=== PATIENT | male | born 1960 | race Caucasian/White ===

== ENCOUNTER 2024-08-05 09:12 | Outpatient (AMB) | payer OTHER, SELFPAY ==
--- OUTSIDE RECORDS SUMMARY | 2024-08-05 09:14 | XMS_ITS | Continuity of Care Document ---
Author Organization Formerly [facility] Address [address] [address] Phone Care Team Providers Care Top Lifter Name Role Phone Simon Medina DO Unavailable Unavailable Advance Directives Directive Yes / No Effective Date File Name No Information Encounters Encounter Description Practice Location Reason(s) For Visit Diagnoses Date Provider [facility]ly [facility], [address], [id number], [place] tel:[phone] [address] [place] [address] No Information 2014 Adam Montes. [address] [place] [address], [id number], [place]. tel:[phone] Family History Family Member Type Diagnosis Age At Onset No Information Payers Payer name Insurance type Covered democrat ID Authoriza tion(s) No Information Social History Type Description Quantity Date Captured Comments Sex Male Smoking Status No Information Chief Complaint And Reason For Visit No Information History Of Present Illness Encounter Date Complaint History Of Prese nt Illness No Information Instructions Date Instruction Additional Infor mation No Information Assessments Type Assessment Date No Information
--- NOTE | 2024-08-05 09:16 | AM.OFFWIN_ITS ---
Intake Vital Signs 08/05/24 09:17 Height 5 ft 4 in Weight 204 lb BMI 35.0 BP 142/92 H Blood Pressure Location Lt brachial Position Sitting Pulse 81 Pulse Source Pulse Oximeter Temp 97.8 F Temp Source Oral Pulse Oximetry (%) 99 Oxygen Delivery Method Room Air Intake Visit Reasons: TOBACCO DIPPER- Cough Intake Note: Passed out twice when coughing. Very congested. Allergies procaine Adverse Reaction (Severe, Verified 08/05/24 09:19) Chest Pain HPI HPI Comments History of Present Illness Details This is a 64-year-old male who presented to the walk-in clinic today complaining of viral URI symptoms with cough x 2 weeks. Patient reports a productive cough of clear sputum, nasal congestion and nasal discharge with clear sputum, sore throat, and bilateral otalgia x2 weeks. He denies any fevers or chills. He denies any chest pain or shortness for breath. He denies any hemoptysis. He denies any bilateral lower extremity edema. Review of Systems Const All systems reviewed & are unremarkable except as noted in HPI and below Reports no additional complaints Eyes Reports no additional complaints ENT Reports no additional complaints Card Reports no additional complaints Resp Reports no additional complaints GI Reports no additional complaints Reports no additional complaints Musc Reports no additional complaints Skin/Breast Reports system reviewed and no additional complaints, except as documented Neuro Reports no additional complaints Psych Reports no additional complaints Endo Reports no additional complaints Jose Armando/Lymph Reports no additional complaints Aller/Immun Reports no additional complaints Physical Exam Vital Signs: Last Vital Signs Temp 97.8 F 08/05/24 09:17 Pulse 81 08/05/24 09:17 BP 142/92 H 08/05/24 09:17 Pulse Ox 99 08/05/24 09:17 Oxygen Delivery Method Room Air 08/05/24 09:17 BMI result Body Mass Index 35.0 Const Other: Vital signs reviewed. Constitutional: Non-toxic appearing. No acute distress. Well-developed and well-nourished. HEENT: Normocephalic and atraumatic. Cerumen impaction bilaterally so I am unable to visualize bilateral tympanic membranes. Moist mucous membranes. Mild posterior pharyngeal erythema without exudates or edema/hypertrophy. PERRLA/EOMI. Skin: Warm and dry. No rashes or lesions noted. Neck: Full and painless range of motion. No cervical lymphadenopathy. Cardio: Regular rate and rhythm. No murmurs, gallops, or rubs. No lower extremity edema. No JVD. Pulmonary: No respiratory distress. No accessory muscle usage. Scant end expiratory wheezing without crackles or rhonchi. Gastrointestinal: Soft, nontender, and nondistended in all 4 quadrants. Musculoskeletal: Normal range of motion in joints throughout the body. No deformity or other signs of injury. Neuro: Alert and oriented x4. Cranial nerves 2-12 grossly intact. No focal deficits appreciated. Psych: Normal mood and affect. Assessment & Plan Assessment & Plan (1) Lower respiratory tract infection: Code(s): J22 - Unspecified acute lower respiratory infection Plan: This is a 64-year-old male who presented to the walk-in clinic complaining of viral URI symptoms with cough x2 weeks. On physical examination, he has scant end expiratory wheezing. History and physical most consistent with an acute lower respiratory tract infection and acute bronchitis. Patient was given a prescription for p.o. prednisone 40 mg daily x5 days and p.o. azithromycin 500 mg today followed by 250 mg daily x4 days. Recommended symptomatic management including rest, increased fluids, advil/tylenol for pain/fever, humidifcation at nighttime, and over the counter throat lozenges/decongestants. Patient advised to follow up here or go to the emergency room for worsening/persistent symptoms including fever/chills, chest pain, shortness of breath, sputum production/purulence, or hemoptysis. Patient verbalized understanding and is agreeable with the plan. Medications: New prednisone 40 mg (2 x 20 mg) PO DAILY 10 tabs 0RF azithromycin For 250 mg dose pack: take 500 mg today (day 1), then 250 mg for 4 days (days 2-5) PO 6 tabs 0RF Coding Level of Care Code New Pt Level 3 (74645) Diagnoses Lower respiratory tract infection J22
[2024-08-05 09:17] VITALS: BP 142/92; PULSE 81; TEMP 36.6; O2SAT 99; BMI 35.0
== END 2024-08-05 10:07 | disposition home or self-care (01) ==
LOC: HO.HMCWIC 09:12
PROVIDERS: PCP Family Medicine; Visit Provider Physician Assistant Medical
DX: J22 Unspecified acute lower respiratory infection (principal)